=== PATIENT | male | born 1960 | race Caucasian/White ===

== ENCOUNTER 2017-09-23 10:18 | Emergency (ER) | payer BC, OTHER ==
[2017-09-23 10:42] VITALS: BP 122/80
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
== END 2017-09-23 11:32 | disposition home or self-care (01) ==
LOC: ER 10:18
DX: N48.89 Other specified disorders of penis (principal); Z87.442 Personal history of urinary calculi; Z88.0 Allergy status to penicillin; Z88.3 Allergy status to other anti-infective agents
CPT/HCPCS: 99281

== ENCOUNTER 2019-11-13 20:27 | Emergency (ER) | payer OTHER ==
[2019-11-13] MEDS ORDERED: DIPH/PERTUSS(ACELL)/TETANUS VAC/PF 0.5 ML SYR (>=10YO) IM ONE (22:17)
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
[2019-11-13] MEDS ORDERED: ACETAMINOPHEN 325 MG TABLET PO ONE (23:15)
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
[2019-11-14 00:23] VITALS: BP 134/93
== END 2019-11-14 00:22 | disposition home or self-care (01) ==
LOC: ER 20:27
DX: S06.0X0A Concussion without loss of consciousness, initial encounter (principal); S40.812A Abrasion of left upper arm, initial encounter; S40.811A Abrasion of right upper arm, initial encounter; S80.812A Abrasion, left lower leg, initial encounter; S80.811A Abrasion, right lower leg, initial encounter; M54.2 Cervicalgia; R07.81 Pleurodynia; Z23 Encounter for immunization; Y04.2XXA Assault by strike against or bumped into by another person, initial encounter; Z88.0 Allergy status to penicillin; Z88.3 Allergy status to other anti-infective agents
CPT/HCPCS: 70450; 70486; 71046; 72050; 72125; 90471; 90715; 99284